=== PATIENT | female | born 1995 | race Caucasian/White ===

== ENCOUNTER 2023-05-13 14:48 | Outpatient (CLI) | payer BC, SELFPAY | END 2023-05-13 14:49 | disposition home or self-care (01) | PROVIDERS: PCP Family Medicine; Visit Provider Family Medicine | DX: R63.5 Abnormal weight gain (principal); Z13.29 Encounter for screening for other suspected endocrine disorder | CPT/HCPCS: 84439 ==

== ENCOUNTER 2024-04-01 14:22 | Outpatient (CLI) | payer OTHER, SELFPAY | END 2024-04-01 14:23 | disposition home or self-care (01) | LOC: LKVREF 14:23 | PROVIDERS: PCP Family Medicine; Visit Provider Family Medicine | DX: E78.5 Hyperlipidemia, unspecified (principal) | CPT/HCPCS: 80061 ==

== ENCOUNTER 2025-04-14 13:53 | Outpatient (CLI) | payer OTHER, SELFPAY ==
[2025-04-16 16:21] LABS: HPV Source Cervix
[2025-04-19 09:35] LABS: Pap Test Digital Imaging Done
== END 2025-04-14 13:54 | disposition home or self-care (01) ==
PROVIDERS: PCP Family Medicine; Visit Provider Registered Nurse
DX: Z12.4 Encounter for screening for malignant neoplasm of cervix (principal)
CPT/HCPCS: 87624; 87625; 88141; 88142; 88175

== ENCOUNTER 2025-07-31 14:16 | Outpatient (CLI) | payer OTHER, SELFPAY ==
[2025-07-31 16:51] LABS: Bacterial Vaginosis* Negative (Negative); Candida glab/krus NOT DETECTED (No Detected)
== END 2025-07-31 14:17 | disposition home or self-care (01) ==
LOC: NFLDREF 14:17
PROVIDERS: PCP Family Medicine; Visit Provider Obstetrics & Gynecology
DX: N89.8 Other specified noninflammatory disorders of vagina (principal)
CPT/HCPCS: 81513; 87481; 87661